=== PATIENT | male | born 1980 | race Caucasian/White ===

== ENCOUNTER 2016-06-10 19:28 | Emergency (ER) | payer BC, OTHER ==
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
[2016-06-10 19:42] VITALS: BP 151/94; PULSE 102; TEMP 97; BMI 32.5
== END 2016-06-10 20:01 | disposition home or self-care (01) ==
LOC: FER 19:28
DX: S00.83XA Contusion of other part of head, initial encounter (principal); V43.52XA Car driver injured in collision with other type car in traffic accident, initial encounter; Y04.2XXA Assault by strike against or bumped into by another person, initial encounter; Y93.89 Activity, other specified; Y92.488 Other paved roadways as the place of occurrence of the external cause
CPT/HCPCS: 99281-25

== ENCOUNTER 2018-05-28 15:38 | Emergency (ER) | payer BC ==
[2018-05-28 15:43] VITALS: TEMP 97.9; BMI 31.0
--- NOTE | 2018-05-28 15:46 | PDOC ---
History of Present Illness - History of Present Illness Initial Comments: 05/28/18 15:41 37 yo M with h/o anxiety who p/w right calf pain. Patient reports acute onset of sharp pain beginning at 1000 AM following step-off injury from ladder onto right leg. Reports fall with absent head/neck/back trauma. Now with right calf tightness, and pain. Endorses hearing "popping sound," in right leg following injury. Not alleviated with Motrin 600 mg. Has been ambulatory with weight bearing difficulty following injury. Denies h/o recent trauma, surgery, prolonged immobilization, malignancy, hormone use therapy, prior DVT. Patient denies Maxwell, vision change, palpitations, orthopnea PND, N/V, F,C, CP, SOB , urinary complaints, abdominal pain, hematuria, BPR, diarrhea, constipation, lightheadedness, weakness, sensory changes. PMHx: as noted above ROS: as noted SHx:Denies Etoh, tobacco, IVDA. Allergies: NKDA <Christian Chua - Last Filed: 05/28/18 18:05> <Alka Barajas - Last Filed: 05/28/18 18:12> - General Chief Complaint: Pain, Acute Stated Complaint: right calf pain Time Seen by Provider: 05/28/18 15:39 Attending Attestation - Resident Resident Name: Christian Chua - ED Attending Attestation I have performed the following: I have examined & evaluated the patient, The case was reviewed & discussed with the resident, I agree w/resident's findings & plan, Exceptions are as noted - HPI HPI: Pain in the right calf prior injury to that ankle 05/28/18 18:10 - Physicial Exam PE: Mild to moderate pain , good peripheral pulses Doppler and X ray wnl 05/28/18 18:10 - Medical Decision Making Elevation, rest fu pmd 05/28/18 18:11 <Alka Barajas - Last Filed: 05/28/18 18:12> Past History - Past Medical History Psychiatric Problems: Yes (ANXIETY) - Immunization History Immunization Up to Date: Yes - Suicide/Smoking/Psychosocial Hx Smoking History: Never smoked Have you smoked in the past 12 months: No Hx Alcohol Use: No Drug/Substance Use Hx: No Substance Use Type: None <Christian Chua - Last Filed: 05/28/18 18:05> <Alka Barajas - Last Filed: 05/28/18 18:12> - Past Medical History Allergies/Adverse Reactions: Allergies Allergy/AdvReac Type Severity Reaction Status Date / Time No Known Allergies Allergy Verified 05/28/18 15:39 Home Medications: Ambulatory Orders Fluoxetine HCl [Prozac] 65 mg PO DAILY 06/10/16 clonazePAM [KlonoPIN] 2 mg PO ASDIR 06/10/16 Review of Systems - Review of Systems Comments:: 05/28/18 15:41 GENERAL/CONSTITUTIONAL: No fever or chills. No weakness. HEAD, EYES, EARS, NOSE AND THROAT: No change in vision. No ear pain or discharge. No sore throat. CARDIOVASCULAR: No chest pain or shortness of breath RESPIRATORY: No cough, wheezing, or hemoptysis. GASTROINTESTINAL: No nausea, vomiting, diarrhea or constipation. GENITOURINARY: No dysuria, frequency, or change in urination. MUSCULOSKELETAL: + Right Calf pain. No joint or muscle swelling. No neck or back pain. SKIN: No rash NEUROLOGIC: No headache, vertigo, loss of consciousness, or change in strength/ sensation. ENDOCRINE: No increased thirst. No abnormal weight change HEMATOLOGIC/LYMPHATIC: No anemia, easy bleeding, or history of blood clots. ALLERGIC/IMMUNOLOGIC: No hives or skin allergy. <Christian Chua - Last Filed: 05/28/18 18:05> *Physical Exam - Physical Exam Comments: 05/28/18 15:42 GENERAL: Awake, alert, and fully oriented, in no acute distress HEAD: No signs of trauma, normocephalic, atraumatic EYES: PERRLA, EOMI, sclera anicteric, conjunctiva clear ENT: [place] grossly normal, nares patent, oropharynx clear without exudates. Moist mucosa NECK: Normal ROM, supple, no lymphadenopathy, JVD, or masses LUNGS: No distress, speaks full sentences, clear to auscultation bilaterally HEART: Regular rate and rhythm, normal S1 and S2, no murmurs, rubs or gallops, peripheral pulses normal and equal bilaterally. EXTREMITIES : +right calf ttp, with absent obvious deformity. Palpable and symmetric 2 + peripheral pulses, DP, PT pulses. Normal inspection, Normal range of motion, no edema. No clubbing or cyanosis. Neg lynn test/Achilles. NEUROLOGICAL: Cranial nerves II through XII grossly intact. Normal speech, normal gait, no focal sensorimotor deficits SKIN: Warm, Dry, normal turgor, no rashes or lesions noted <Christian Chua - Last Filed: 05/28/18 18:05> - Vital Signs Last Vital Signs Temp Pulse Resp BP Pulse Ox 97.9 F 101 H 18 144/94 99 05/28/18 15:38 05/28/18 15:38 05/28/18 15:38 05/28/18 15:38 05/28/18 15:38 <Alka Baraajs S - Last Filed: 05/28/18 18:12> Moderate Sedation - Procedure Monitoring Vital Signs: Procedure Monitoring Vital Signs Temperature 97.9 F 05/28/18 15:38 Pulse Rate 101 H 05/28/18 15:38 Respiratory Rate 18 05/28/18 15:38 Blood Pressure 144/94 05/28/18 15:38 O2 Sat by Pulse Oximetry (%) 99 05/28/18 15:38 <Alka Barajas S - Last Filed: 05/28/18 18:12> Medical Decision Making - Medical Decision Making 05/28/18 15:43 37 yo M with h/o anxiety who p/w right calf pain. HR 101, vitals otherwise wnl, AF, A&Ox3. + R calf ttp. BL LE neurovascularly intact. Low risk DVT per Weils criteria. Low suspicion fracture, dislocation. Neg Lynn test. Low suspicion achilles tendon rupture. No obvious skin changes. Low suspicion cellulitis. Symptoms likely 2/2 acute muscle strain/sprain. ED Course: R ANKLE U/S, R TIB/FIB RAD Counseled on NSAID use/analegsia. 05/28/18 18:05 R TIB/FIB RAD :Unremarkable R DUPLEX LE: Unremarkable Patient stable for d/c with return precautions. <Christian Chua - Last Filed: 05/28/18 18:05> *DC/Admit/Observation/Transfer - Discharge Dispostion Decision to Admit order: No - Attestations Physician Attestion: 05/28/18 15:44 I attest to the information provided in this note. <Christian Chua - Last Filed: 05/28/18 18:05> <Alka Barajas S - Last Filed: 05/28/18 18:12> Diagnosis at time of Disposition: Calf pain Qualifiers: Laterality: right Qualified Code(s): M79.661 - Pain in right lower leg - Discharge Dispostion Disposition: HOME Condition at time of disposition: Stable - Patient Instructions Printed Discharge Instructions: DI for Calf Muscle Strain Additional Instructions: Please return to the emergency department with any new or worsening symptoms or concerns. Please follow up with your primary care physician within 72 hours. You can take 600 mg of Ibuprofen every 6-8 hours as needed for pain.
[2018-05-28 18:21] VITALS: BP 134/90; PULSE 87
== END 2018-05-28 18:22 | disposition home or self-care (01) ==
LOC: FER 15:38
DX: M79.661 Pain in right lower leg (principal)
CPT/HCPCS: 73590-TC-RT-FY; 93971-TC; 99282-25

== ENCOUNTER 2019-02-20 21:35 | Emergency (ER) | payer BC ==
[2019-02-20 21:41] VITALS: BP 129/86; PULSE 90; TEMP 97.7; BMI 29.5
--- NOTE | 2019-02-20 22:01 | PDOC ---
History of Present Illness - General Chief Complaint: Redness To Affected Area Stated Complaint: WOUND Time Seen by Provider: 02/20/19 21:38 History Source: Patient Exam Limitations: No Limitations - History of Present Illness Initial Comments: 02/20/19 22:21 This is a 38-year-old male who was using an electric shaver to shave his genital area when he accidentally nicked the dorsum of his penis. Patient said that it has been very slow in healing so he was concerned. Patient denies any pain redness discharge or pus from the area. Patient is otherwise healthy. Allergies: as per nursing notes Past Medical History: none Social history: Lives with family. No smoking. No alcohol. No illicit drugs. Surgical history: None General: No fevers or chills, no weakness, no weight loss HEENT: No change in vision. No sore throat,. No ear pain CardioVascular: no chest discomfort. No shortness of breath Respiratory:No cough, or wheezing. Gastrointestinal: no nausea, vomiting, diarrhea or constipation, No rectal bleeding Genitourinary: No dysuria, hematuria, or frequency, lesion to the dorsum of the penis Musculoskeletal: No joint or muscle pain or swelling Neurologic: No headache, vertigo, dizziness or loss of consciousness Psychiatric: nor depression Skin: No rashes or easy bruising Endocrine: no increased thirst or abnormal weight change Allergic: no skin or latex allergy All other systems reviewed and normal GENERAL: The patient is awake, alert, and fully oriented, in no acute distress. HEAD: Normal with no signs of trauma. EYES: Pupils equal, round and reactive to light, extraocular movements intact, sclera anicteric, conjunctiva clear. EXTREMITIES:atraumatic, Normal range of motion, no edema. : There is a small area approximately 2 mm in diameter with some mild erythema and a scab on the dorsum of the penis. There is no tenderness on palpation there is no evidence of spread. NEUROLOGICAL: Normal speech, normal gait. PSYCH: Normal mood, normal affect. SKIN: Warm, Dry, normal turgor, no rashes or lesions noted. Assessment and plan: This is a 38-year-old male with a cut on the dorsum of his penis from several days ago that is slow to heal. Patient was reassured that this is not at all uncommon and told to put some antibiotic ointment on it. In addition to that a prescription was sent to the patient's pharmacy if it gets worse he will get the prescription filled and take it. Past History - Past Medical History Allergies/Adverse Reactions: Allergies Allergy/AdvReac Type Severity Reaction Status Date / Time No Known Allergies Allergy Verified 05/28/18 15:39 Home Medications: Ambulatory Orders Fluoxetine HCl [Prozac] 65 mg PO DAILY 06/10/16 clonazePAM [KlonoPIN] 2 mg PO ASDIR 06/10/16 Sulfamethoxazole/Trimethoprim [Bactrim DS -] 1 tab PO BID #14 tablet 02/20/19 COPD: No Psychiatric Problems: Yes (ANXIETY) - Immunization History Immunization Up to Date: Yes - Psycho Social/Smoking Cessation Hx Smoking History: Never smoked Have you smoked in the past 12 months: No Hx Alcohol Use: No Drug/Substance Use Hx: No Substance Use Type: None *Physical Exam - Vital Signs Last Vital Signs Temp Pulse Resp BP Pulse Ox 97.7 F 90 16 129/86 96 02/20/19 21:37 02/20/19 21:37 02/20/19 21:37 02/20/19 21:37 02/20/19 21:37 Discharge - Discharge Information Problems reviewed: Yes Clinical Impression/Diagnosis: Laceration of penis Qualifiers: Encounter type: initial encounter Qualified Code(s): S31.21XA - Laceration without foreign body of penis, initial encounter Condition: Stable Disposition: HOME - Admission No - Additional Discharge Information Prescriptions: Sulfamethoxazole/Trimethoprim [Bactrim DS -] 1 tab PO BID #14 tablet - Follow up/Referral Referrals: Remigio Delgado MD [Primary Care Provider] - - Patient Discharge Instructions Additional Instructions: Apply bacitracin or any antibiotic cream to the area 3 times a day for the next 3 to 4 days or until it is healed. I am also sending a prescription to your pharmacy for an antibiotic that you can take if it gets worse the antibiotic will be taken twice a day for 7 days. Return to the emergency department immediately with ANY new, persistent or worsening symptoms. Continue any medications as previously prescribed by your physician. You should follow up with your primary doctor as soon as possible regarding today's emergency department visit. . Please make sure your doctor reviews the results of your emergency evaluation. Thank you for coming to the Emergency Department today for your care. It was a pleasure to see you today. Please note that your evaluation is INCOMPLETE until you follow-up with your doctor. - Post Discharge Activity
== END 2019-02-20 22:08 | disposition home or self-care (01) ==
LOC: FER 21:35
DX: S31.21XA Laceration without foreign body of penis, initial encounter (principal); W45.8XXA Other foreign body or object entering through skin, initial encounter; Y93.E8 Activity, other personal hygiene; Y92.002 Bathroom of unspecified non-institutional (private) residence as the place of occurrence of the external cause; F41.9 Anxiety disorder, unspecified
CPT/HCPCS: 99281-25

== ENCOUNTER 2020-05-22 00:17 | Emergency (ER) | payer BC ==
[2020-05-22 00:22] VITALS: BP 150/91; PULSE 103; TEMP 98.8; BMI 28.7
[2020-05-22] MEDS ORDERED: KETOROLAC TROMETHAMINE 60 MG/2 ML VIAL IM ONE (01:05)
[2020-05-22] MEDS ORDERED: KETOROLAC TROMETHAMINE 60 MG/2 ML VIAL ONE (01:10)
== END 2020-05-22 01:15 | disposition home or self-care (01) ==
LOC: FER 00:17
PROC: 3E0233Z Introduction of Anti-inflammatory into Muscle, Percutaneous Approach (ICD-10-PCS; principal; 2020-05-22)
DX: S33.9XXA Sprain of unspecified parts of lumbar spine and pelvis, initial encounter (principal)
CPT/HCPCS: 99284-25

== ENCOUNTER 2022-05-25 16:30 | Emergency (ER) | payer OTHER, BC ==
[2022-05-25 16:57] VITALS: BP 125/90; PULSE 99; RESP 16; TEMP 98.9; BMI 30.8
[2022-05-25] MEDS ORDERED: ACETAMINOPHEN 325 MG TABLET (FP) PO ONE (17:06)
[2022-05-25] MEDS ORDERED: KETOROLAC TROMETHAMINE 30 MG/1 ML VIAL IM ONE (17:06)
[2022-05-25] MEDS ORDERED: ACETAMINOPHEN 325 MG TABLET (FP) ONE (18:06)
[2022-05-25] MEDS ORDERED: KETOROLAC TROMETHAMINE 30 MG/1 ML VIAL ONE (18:07)
== END 2022-05-25 23:44 | disposition home or self-care (01) ==
LOC: FER 16:30
PROC: 3E023GC Introduction of Other Therapeutic Substance into Muscle, Percutaneous Approach (ICD-10-PCS; principal; 2022-05-25)
DX: M48.02 Spinal stenosis, cervical region (principal)
CPT/HCPCS: 70450-TC; 72070-TC-FY; 72125-TC; 72141-TC; 72148-TC; 99285-25; C9803-CS; U0003; U0005

== ENCOUNTER 2022-11-19 13:12 | Emergency (ER) | payer OTHER, BC ==
[2022-11-19 13:25] VITALS: BMI 37.3
[2022-11-19 14:55] LABS: BASO % 0.8 % (0-2.0); EOS % 2.1 % (0-4.5); HEMATOCRIT 45.5 % (35.4-49); HEMOGLOBIN 15.2 GM/dL (11.7-16.9); LYMPH % 24.9 % (8-40); MCH 28.9 pg (25.7-33.7); MCHC 33.5 g/dl (32.0-35.9); MEAN CELL VOLUME 86.2 fl (80-96); MEAN PLT VOLUME 8.9 fl (7.5-11.1); MONO % 8.9 % (3.8-10.2); NEUT % 63.3 % (42.8-82.8); PLATELET COUNT 227 10^3/uL (134-434); RBC 5.27 M/mm3 (4.00-5.60); WHITE BLOOD COUNT 6.9 K/mm3 (4.0-10.0)
[2022-11-19 15:07] LABS: PROTHROMBIN TIME (PATIENT) 11.6 SEC (9.7-13.0)
[2022-11-19 15:15] LABS: ALBUMIN 3.6 g/dl (3.4-5.0); BLOOD UREA NITROGEN 12.9 mg/dL (7-18); CALCIUM 9.9 mg/dL (8.5-10.1)
[2022-11-19 15:18] LABS: CREATININE 1.2 mg/dL (0.55-1.3)
[2022-11-19 15:19] LABS: BILIRUBIN,TOTAL 0.4 mg/dL (0.2-1)
[2022-11-19 15:20] LABS: TOT PROT 6.9 g/dl (6.4-8.2)
[2022-11-19 15:37] LABS: PH,URINE 5.5 (5.0-8.0); URINE APPEARANCE CLEAR; URINE BILIRUBIN NEGATIVE (NEGATIVE); URINE COLOR YELLOW; URINE GLUCOSE (UA) 1+ (NEGATIVE); URINE KETONE TRACE (NEGATIVE); URINE LEUK ESTERASE NEGATIVE (NEGATIVE); URINE NITRITE NEGATIVE (NEGATIVE); URINE PROTEIN TRACE (NEGATIVE); URINE UROBILINOGEN 0.2 mg/dL (0.2-1.0)
[2022-11-19 16:58] VITALS: RESP 20; TEMP 98.3
[2022-11-19 19:19] VITALS: BP 108/77; PULSE 98
== END 2022-11-19 20:58 | disposition home or self-care (01) ==
LOC: JER 13:12
DX: R32 Unspecified urinary incontinence (principal); M54.9 Dorsalgia, unspecified; R20.2 Paresthesia of skin; R26.2 Difficulty in walking, not elsewhere classified; M62.81 Muscle weakness (generalized)
CPT/HCPCS: 36415; 72148-TC; 80053; 81003; 85025; 85610; 86850; 86900; 86901; 87086; 99284-25